=== PATIENT | male | born 1975 | race Caucasian/White ===

== ENCOUNTER 2025-08-23 10:18 | Inpatient (IN) | payer MEDICAID ==
[2025-08-23] VITALS (21 sets, daily range): BP systolic 98–127; BP diastolic 62–101; PULSE 66–110; RESP 13–24; TEMP 36.2–36.2512; O2SAT 98–100
[~2025-08-23] VITALS: Ht 152.4 cm; Wt 63.0 kg
[2025-08-23] MEDS: SODIUM CHLORIDE 0.9% (SEPSIS BOLUS) IV ONE (10:49)
[2025-08-23 11:03] LABS: BG BASE EXCESS -12.4 mmol/L (-2.0-3.0); BG CARBOXYHEMOGLOBIN 0.4 % (0.5-1.5); BG DEOXYHEMOGLOBIN 0.8 % (0.0-5.0); BG FLOW(L/min) 10.00 L/min; BG FRACTION INSPIRED OXYGEN 100; BG HCO3 ACT 13.7 mmol/L (21.0-28.0); BG METHEMOGLOBIN 0.1 % (0.5-1.5); BG OXYGEN SATURATION 99.2 % (94.0-98.0); BG OXYHEMOGLOBIN 98.7 % (94.0-98.0); BG PCO2 32.1 mmHg (35.0-48.0); BG PH 7.249 (7.350-7.450); BG PO2 190.2 mmHg (83.0-108.0); BG SAMPLE SITE RIGHT BRACHIAL; BG TOTAL HEMOGLOBIN 9.7 g/dL (13.5-17.5); BG VENT MODE MASK - NRB
[2025-08-23] MEDS: MORPHINE SULFATE 4 MG/ML INJ (FOR IV/IM USE) IV ONE (11:14)
[2025-08-23] MEDS: PIPERACILLIN/TAZO 3.375G/50ML 50 ML IV ONE (11:14)
[2025-08-23 11:19] LABS: HEMATOCRIT. 26.8 % (42.0-52.0); HEMOGLOBIN. 8.2 g/dL (14.0-18.0); MEAN PLATELET VOLUME 7.3 fl (7.4-10.4); RED BLOOD CELL COUNT 2.75 mill/uL (4.7-6.1); RED CELL DISTRIBUTION WIDTH 23.1 % (11.6-14.6)
[2025-08-23] MEDS ORDERED: NOREPINEPHRINE 8 MG in DEXT 5% WATER 242 ML IV PRN (11:30)
[2025-08-23 11:33] LABS: INR 1.0
[2025-08-23 11:52] LABS: TROPONIN I HIGH SENSITIVITY 96 ng/L (3.0-53)
[2025-08-23 11:58] LABS: CREATININE 2.9 mg/dL (0.6-1.3); UREA NITROGEN BLOOD 94 mg/dL (9-23)
[2025-08-23 12:00] LABS: ASPARTATE AMINOTRANSFERASE 18 IU/L (<34); BILIRUBIN DIRECT < 0.1 mg/dL (<=3.0)
[2025-08-23 12:01] LABS: BILIRUBIN TOTAL 0.3 mg/dL (0.1-1.0); PROTEIN TOTAL 6.8 g/dL (6.0-8.3)
[2025-08-23] MEDS: ONDANSETRON HCL 4MG/2ML INJ IV ONE (12:09)
[2025-08-23] MEDS: VANCOMYCIN 1G PREMIX 200 ML IV ONE (12:09)
[2025-08-23] MEDS: NOREPINEPHRINE 8MG/250ML PMX 250 ML IV PRN (12:10)
[2025-08-23 12:18] LABS: PLATELET 1090 x1000/uL (130-400)
[2025-08-23] MEDS: ALBUTEROL (0.083%) 2.5MG/3ML NEB HHN ONE (12:28)
[2025-08-23 12:33] LABS: CLARITY URINE CLOUDY (CLEAR); COLOR URINE DARK YELLOW (YELLOW); GLUCOSE URINE NEGATIVE (NEGATIVE); KETONES URINE NEGATIVE (NEGATIVE); LEUKOCYTE ESTERASE URINE 3+ (NEGATIVE); NITRITE URINE NEGATIVE (NEGATIVE); OCCULT BLOOD URINE 3+ (NEGATIVE); PH URINE 5.5 (4.5-8.0); PROTEIN URINE 1+ (NEGATIVE); SPECIFIC GRAVITY URINE 1.017 (1.005-1.030); UROBILINOGEN URINE 0.2 E.U./dL (0.2-1.0)
[2025-08-23] MEDS: CALCIUM CHLORIDE 1GM/10ML SYR IV ONE (12:38)
[2025-08-23] MEDS: DEXTROSE 50% WATER 50ML SYRINGE IV ONE (12:38)
[2025-08-23] MEDS: INSULIN REGULAR (HUMULIN R) 1000UNITS/10ML VIAL IV ONE (12:39)
[2025-08-23] MEDS ORDERED: ONDANSETRON HCL 4MG/2ML INJ IV PRN (12:45)
[2025-08-23] MEDS ORDERED: ACETAMINOPHEN 325MG TABLET PO PRN (12:45)
[2025-08-23] MEDS: LACTATED RINGERS 1,000 ML IV SCH (12:47)
[2025-08-23 12:51] LABS: SQUAMOUS EPITHELIAL CELL URINE NONE SEEN /lpf (RARE/1+)
[2025-08-23 12:52] LABS: BACTERIA URINE 4+; WBC URINE TNTC /hpf (0-2); YEAST URINE 2+
[2025-08-23] MEDS ORDERED: AZITHROMYCIN 500MG/250ML 250 ML IV SCH ×2 (13:00)
[2025-08-23] MEDS: SODIUM BICARBONATE 150 MEQ in DEXTROSE 5% WATER 850 ML IV SCH (13:16)
[2025-08-23 13:17] LABS: BAND% 4.0 % (1.0-6.0); LYMPHOCYTES % MANUAL 3.0 % (20.0-50.0); MONOCYTES % MANUAL 3.0 % (2.0-8.0); NEUTROPHILS % MANUAL 90.0 % (45.0-75.0); PLATELET ESTIMATE MARKEDLY INCREASED
[2025-08-23] MEDS: PANTOPRAZOLE SODIUM 40 MG/VIAL IV SCH (13:29)
[2025-08-23] MEDS: SODIUM CHLORIDE 0.9% 500 ML IV ONE (13:29)
[2025-08-23] MEDS ORDERED: DOXYCYCLINE 100MG/100ML 100 ML IV SCH (14:00)
[2025-08-23] MEDS ORDERED: NALOXONE HCL 0.4MG/ML VIAL IV PRN (14:00)
[2025-08-23 15:23] LABS: CREATININE 2.4 mg/dL (0.6-1.3); UREA NITROGEN BLOOD 59.0 mg/dL (9-23)
[2025-08-23] MEDS: ENOXAPARIN 30MG/0.3ML SYR SUBCUT SCH (15:49)
[2025-08-23] MEDS: PIPERACILLIN/TAZO 3.375G/50ML 50 ML IV SCH (15:49)
[2025-08-23 17:58] LABS: INFLUENZA TYPE A Presumptive Negative (Pres. Neg.); INFLUENZA TYPE B Presumptive Negative (Pres. Neg.)
[2025-08-23 17:59] LABS: RESPIRATORY SYNCYTIAL VIRUS Not Detected (Not Detectd)
[2025-08-23] MEDS: DOXYCYCLINE 100MG/100ML 100 ML IV SCH (20:27)
[2025-08-23] MEDS: NOREPINEPHRINE 8MG/250ML PMX 250ML IV PRN (21:13)
[2025-08-24] VITALS (90 sets, daily range): BP systolic 75–138; BP diastolic 36–112; PULSE 74–121; RESP 9–24; TEMP 36.3–36.9; O2SAT 99–100
[2025-08-24 06:01] LABS: HEMATOCRIT. 23.4 % (42.0-52.0); HEMOGLOBIN. 7.4 g/dL (14.0-18.0); MEAN PLATELET VOLUME 7.4 fl (7.4-10.4); PLATELET 674 x1000/uL (130-400); RED BLOOD CELL COUNT 2.41 mill/uL (4.7-6.1); RED CELL DISTRIBUTION WIDTH 22.9 % (11.6-14.6)
[2025-08-24 06:18] LABS: UREA NITROGEN BLOOD 43.0 mg/dL (9-23)
[2025-08-24 06:19] LABS: T4 FREE 1.07 ng/dL (0.89-1.76)
[2025-08-24 06:20] LABS: CREATININE 1.5 mg/dL (0.6-1.3)
[2025-08-24 09:43] LABS: ASPARTATE AMINOTRANSFERASE 21 IU/L (<34); BILIRUBIN DIRECT 0.1 mg/dL (<=3.0); BILIRUBIN TOTAL 0.3 mg/dL (0.1-1.0)
[2025-08-24 09:46] LABS: PROTEIN TOTAL 4.6 g/dL (6.0-8.3)
[2025-08-24] MEDS: SODIUM CHLORIDE 0.9% 1,000 ML IV ONE (10:11)
[2025-08-24] MEDS: MORPHINE SULFATE 2 MG/ML INJ (NOT FOR IM USE) IV PRN (11:31)
[2025-08-24] MEDS: VANCOMYCIN 750MG/150ML (BAXTER) IV SCH (12:08)
[2025-08-24] MEDS: SODIUM HYPOCHLORITE 0.125% 473ML SOLUTION TOP SCH (12:10)
[2025-08-24] MEDS ORDERED: FLUCONAZOLE 200 MG/100ML BAG 100 MG in CONTAINER,EMPTY 0 BAG IV SCH (14:45)
[2025-08-24] MEDS ORDERED: MIDODRINE HCL 5MG TABLET PO PRN (15:00)
[2025-08-24 17:13] LABS: LYMPHOCYTES % MANUAL 8.0 % (20.0-50.0); MONOCYTES % MANUAL 1.0 % (2.0-8.0); NEUTROPHILS % MANUAL 91.0 % (45.0-75.0); NUCLEATED RED BLOOD CELLS 1 /100 WBC; PLATELET ESTIMATE INCREASED
[2025-08-24] MEDS: FLUCONAZOLE 200 MG/100ML BAG 100 ML IV SCH (18:30)
[2025-08-24 23:00] LABS: TROPONIN I HIGH SENSITIVITY 5 ng/L (3.0-53)
[2025-08-25] VITALS (93 sets, daily range): BP systolic 71–118; BP diastolic 49–95; PULSE 73–111; RESP 9–27; TEMP 36.4–37; O2SAT 98–100
[2025-08-25 05:54] LABS: PLATELET 624 x1000/uL (130-400); RED BLOOD CELL COUNT 2.37 mill/uL (4.7-6.1); RED CELL DISTRIBUTION WIDTH 23.1 % (11.6-14.6)
[2025-08-25 05:59] LABS: CREATININE 1.3 mg/dL (0.6-1.3); UREA NITROGEN BLOOD 32 mg/dL (9-23)
[2025-08-25 06:13] LABS: FOLIC ACID (FOLATE) SERUM 11.47 ng/mL (>5.38); VITAMIN B12 SERUM 1187 pg/mL (211-911)
[2025-08-25 10:29] LABS: PLATELET 524 x1000/uL (130-400); RED BLOOD CELL COUNT 2.23 mill/uL (4.7-6.1); RED CELL DISTRIBUTION WIDTH 22.7 % (11.6-14.6)
[2025-08-25] MEDS ORDERED: NON FORMULARY MED XX SCH (11:00)
[2025-08-25] MEDS: IRON SUCROSE COMPLEX 100 MG/5 ML ML IV SCH (13:49)
[2025-08-25] MEDS ORDERED: CEFEPIME 1GM IN DEXT 5% 50ML IV SCH (14:30)
[2025-08-25] MEDS: MIDODRINE HCL 5MG TABLET PO SCH (15:18)
[2025-08-25] MEDS: CEFEPIME 2GM PREMIX 100ML IV SCH (16:42)
[2025-08-25 22:21] LABS: PLATELET 430 x1000/uL (130-400); RED BLOOD CELL COUNT 2.77 mill/uL (4.7-6.1); RED CELL DISTRIBUTION WIDTH 26.4 % (11.6-14.6)
[2025-08-25 22:34] LABS: CREATININE 1.0 mg/dL (0.6-1.3); UREA NITROGEN BLOOD 24 mg/dL (9-23)
[2025-08-26] VITALS (80 sets, daily range): BP systolic 69–126; BP diastolic 46–107; PULSE 60–118; RESP 11–28; TEMP 36.4–36.7; O2SAT 99–100
[2025-08-26 06:19] LABS: HEMATOCRIT. 31.1 % (42.0-52.0); HEMOGLOBIN. 9.9 g/dL (14.0-18.0); MEAN PLATELET VOLUME 7.2 fl (7.4-10.4); PLATELET 457 x1000/uL (130-400); RED BLOOD CELL COUNT 3.35 mill/uL (4.7-6.1); RED CELL DISTRIBUTION WIDTH 27.4 % (11.6-14.6)
[2025-08-26 06:51] LABS: ASPARTATE AMINOTRANSFERASE 17 IU/L (<34); CREATININE 1.0 mg/dL (0.6-1.3); UREA NITROGEN BLOOD 24 mg/dL (9-23)
[2025-08-26 06:53] LABS: BILIRUBIN DIRECT 0.2 mg/dL (<=3.0); BILIRUBIN TOTAL 0.6 mg/dL (0.1-1.0); PROTEIN TOTAL 5.2 g/dL (6.0-8.3)
[2025-08-26 07:27] LABS: HEPATITIS A AB IGM NEGATIVE (Negative)
[2025-08-26 07:28] LABS: HEPATITIS B CORE AB IGM NEGATIVE (Negative); HEPATITIS C AB NON REACTIVE (Neg) (Negative)
[2025-08-26] MEDS ORDERED: POTASSIUM CHLORIDE 20 MEQ in DEXT 5% WATER 90 ML IV ONE (08:00)
[2025-08-26] MEDS: KCL 20MEQ/100ML PREMIX 100 ML IV ONE (09:25)
[2025-08-26] MEDS: POTASSIUM CHLORIDE 20MEQ/PACKET PO NR (09:25)
[2025-08-26 10:39] LABS: BAND% 2.0 % (1.0-6.0); EOSINOPHILS % MANUAL 1.0 % (0.0-5.0); LYMPHOCYTES % MANUAL 4.0 % (20.0-50.0); MONOCYTES % MANUAL 3.0 % (2.0-8.0); NEUTROPHILS % MANUAL 90.0 % (45.0-75.0)
[2025-08-26 10:40] LABS: PLATELET ESTIMATE INCREASED
[2025-08-26] MEDS: MORPHINE SULFATE 2 MG/ML INJ (NOT FOR IM USE) IV PRN (10:53)
[2025-08-26 10:59] LABS: PHOSPHORUS 3.3 mg/dL (2.5-4.9)
[2025-08-26] MEDS ORDERED: DIATR MEGLU/DIATRIZOATE SOLN 30ML PO SCH (11:30)
[2025-08-26] MEDS: CEFEPIME 2GM PREMIX 100ML IV SCH (17:08)
[2025-08-27] VITALS (98 sets, daily range): BP systolic 76–122; BP diastolic 47–78; PULSE 59–100; RESP 9–26; TEMP 36.7–36.8; O2SAT 99–100
[2025-08-27 05:07] LABS: HEMATOCRIT. 29.7 % (42.0-52.0); HEMOGLOBIN. 9.1 g/dL (14.0-18.0); MEAN PLATELET VOLUME 7.2 fl (7.4-10.4); PLATELET 425 x1000/uL (130-400); RED BLOOD CELL COUNT 3.18 mill/uL (4.7-6.1); RED CELL DISTRIBUTION WIDTH 27.0 % (11.6-14.6)
[2025-08-27 05:32] LABS: CREATININE 1.0 mg/dL (0.6-1.3); UREA NITROGEN BLOOD 22 mg/dL (9-23)
[2025-08-27 05:35] LABS: PHOSPHORUS 2.5 mg/dL (2.5-4.9)
[2025-08-27] MEDS ORDERED: IOHEXOL-300 100 ML BOTTLE ONE (05:54)
[2025-08-27] MEDS: VANCOMYCIN 1GM PMX (XELLIA) 200 ML IV SCH (08:53)
[2025-08-27] MEDS: MAGNESIUM 2 G PREMIX 50 ML IV NR (08:53)
[2025-08-27] MEDS: HYDROCODONE/ACETAMINOPHEN 5/325MG TABLET PO PRN (12:01)
[2025-08-27 16:40] LABS: BAND% 5.0 % (1.0-6.0); LYMPHOCYTES % MANUAL 6.0 % (20.0-50.0); MONOCYTES % MANUAL 4.0 % (2.0-8.0); NEUTROPHILS % MANUAL 85.0 % (45.0-75.0); PLATELET ESTIMATE INCREASED
[2025-08-28] VITALS (88 sets, daily range): BP systolic 74–111; BP diastolic 45–82; PULSE 68–105; RESP 11–29; TEMP 36.1–36.9; O2SAT 92–100
[2025-08-28] MEDS ORDERED: MAGNESIUM 2 G PREMIX 50 ML IV NR (08:00)
[2025-08-28 10:43] LABS: HEMATOCRIT. 25.0 % (42.0-52.0); HEMOGLOBIN. 7.8 g/dL (14.0-18.0); MEAN PLATELET VOLUME 7.3 fl (7.4-10.4); PLATELET 319 x1000/uL (130-400); RED BLOOD CELL COUNT 2.67 mill/uL (4.7-6.1); RED CELL DISTRIBUTION WIDTH 26.2 % (11.6-14.6)
[2025-08-28 11:02] LABS: CREATININE 0.8 mg/dL (0.6-1.3); UREA NITROGEN BLOOD 20 mg/dL (9-23)
[2025-08-28 11:04] LABS: PHOSPHORUS 3.0 mg/dL (2.5-4.9)
[2025-08-28] MEDS: MAGNESIUM 2 G PREMIX 50 ML IV NR (16:05)
[2025-08-28] MEDS: SODIUM CHLORIDE 0.9% 500 ML IV ONE (16:05)
[2025-08-28] MEDS: POTASSIUM CHLORIDE 20MEQ TABLET SR PO NR (18:47)
[2025-08-28] MEDS: MIDODRINE HCL 5MG TABLET PO SCH (21:56)
[2025-08-29] VITALS (95 sets, daily range): BP systolic 61–127; BP diastolic 44–86; PULSE 54–120; RESP 7–25; TEMP 36.3–36.7; O2SAT 82–100
[2025-08-29] MEDS: MIDODRINE HCL 5MG TABLET PO SCH (05:27)
[2025-08-29 06:31] LABS: PLATELET 355 x1000/uL (130-400); RED BLOOD CELL COUNT 2.78 mill/uL (4.7-6.1); RED CELL DISTRIBUTION WIDTH 25.8 % (11.6-14.6)
[2025-08-29 06:47] LABS: CREATININE 0.9 mg/dL (0.6-1.3)
[2025-08-29 06:48] LABS: UREA NITROGEN BLOOD 18 mg/dL (9-23)
[2025-08-29 06:49] LABS: ASPARTATE AMINOTRANSFERASE 28 IU/L (<34)
[2025-08-29 06:50] LABS: BILIRUBIN DIRECT 0.3 mg/dL (<=3.0); BILIRUBIN TOTAL 0.6 mg/dL (0.1-1.0); PROTEIN TOTAL 4.2 g/dL (6.0-8.3)
[2025-08-29] MEDS: POTASSIUM CHLORIDE 20MEQ TABLET SR PO NR (08:27)
[2025-08-29] MEDS: SODIUM CHLORIDE 0.9% 500 ML IV ONE (11:43)
[2025-08-29 13:25] LABS: BAND% 5.0 % (1.0-6.0); LYMPHOCYTES % MANUAL 5.0 % (20.0-50.0); MONOCYTES % MANUAL 1.0 % (2.0-8.0); NEUTROPHILS % MANUAL 89.0 % (45.0-75.0); PLATELET ESTIMATE NORMAL
[2025-08-30] VITALS (72 sets, daily range): BP systolic 80–108; BP diastolic 52–79; PULSE 67–116; RESP 14–26; TEMP 36.7–36.8; O2SAT 92–100
[2025-08-30 05:00] LABS: BASOPHILS % 0.0 % (0.0-2.0); EOSINOPHILS % 0.4 % (0.0-5.0); HEMATOCRIT. 31.7 % (42.0-52.0); HEMOGLOBIN. 9.6 g/dL (14.0-18.0); LYMPHOCYTES % 7.3 % (20.0-50.0); MEAN PLATELET VOLUME 7.6 fl (7.4-10.4); MONOCYTES % 3.3 % (2.0-8.0); NEUTROPHILS % 89.0 % (40.0-76.0); PLATELET 368 x1000/uL (130-400); RED BLOOD CELL COUNT 3.34 mill/uL (4.7-6.1); RED CELL DISTRIBUTION WIDTH 26.0 % (11.6-14.6)
[2025-08-30 05:11] LABS: ADD RBC MORPHOLOGY YES
[2025-08-30 05:19] LABS: CREATININE 0.7 mg/dL (0.6-1.3); UREA NITROGEN BLOOD 15 mg/dL (9-23)
[2025-08-30 05:21] LABS: PHOSPHORUS 1.7 mg/dL (2.5-4.9)
[2025-08-30] MEDS: MAGNESIUM 2 G PREMIX 50 ML IV NR (08:13)
[2025-08-30] MEDS ORDERED: POTASSIUM PHOSPHATE 20 MMOL in DEXT 5% WATER 243.3333 ML IV NR (09:00)
[2025-08-30] MEDS ORDERED: MEGESTROL ACETATE 40MG TABLET PO SCH (09:00)
[2025-08-30] MEDS: SODIUM PHOSPHATE 30 MMOL in SODIUM CHLORIDE 0.9% 490 ML IV NR (10:15)
[2025-08-30] MEDS: MEGESTROL ACETATE 400 MG/10 ML UDC PO SCH (11:39)
[2025-08-30] MEDS: SODIUM BICARBONATE 8.4% 50MEQ/50ML SYR IV SCH (11:39)
[2025-08-30 11:45] LABS: PLATELET ESTIMATE NORMAL
[2025-08-30] MEDS: MEROPENEM 1G/100ML 100 ML IV SCH (13:20)
[2025-08-31] VITALS (83 sets, daily range): BP systolic 64–106; BP diastolic 37–76; PULSE 67–119; RESP 13–28; TEMP 36.7–36.9; O2SAT 80–100
[2025-08-31 05:37] LABS: CREATININE 0.5 mg/dL (0.6-1.3); UREA NITROGEN BLOOD 16 mg/dL (9-23)
[2025-08-31 05:39] LABS: PHOSPHORUS 2.4 mg/dL (2.5-4.9)
[2025-08-31 05:49] LABS: BASOPHILS % 0.1 % (0.0-2.0); EOSINOPHILS % 0.8 % (0.0-5.0); HEMATOCRIT. 29.7 % (42.0-52.0); HEMOGLOBIN. 8.9 g/dL (14.0-18.0); LYMPHOCYTES % 10.7 % (20.0-50.0); MEAN PLATELET VOLUME 8.4 fl (7.4-10.4); MONOCYTES % 4.2 % (2.0-8.0); NEUTROPHILS % 84.2 % (40.0-76.0); PLATELET 247 x1000/uL (130-400); RED BLOOD CELL COUNT 3.07 mill/uL (4.7-6.1); RED CELL DISTRIBUTION WIDTH 25.5 % (11.6-14.6)
[2025-08-31] MEDS: SODIUM CHLORIDE 0.9% 500 ML IV ONE (07:57)
[2025-08-31] MEDS: MAGNESIUM 2 G PREMIX 50 ML IV ONE ×2 (07:58→08:16)
[2025-08-31] MEDS: POTASSIUM PHOSPHATE 20 MMOL in DEXT 5% WATER 243.3333 ML IV ONE ×2 (08:15→12:10)
[2025-08-31] MEDS ORDERED: SODIUM CHLORIDE 0.9% 1,000 ML IV SCH (08:30)
[2025-08-31] MEDS: FERROUS SULFATE 325MG TABLET PO SCH (08:56)
[2025-08-31] MEDS: ASCORBIC ACID 250 MG TABLET PO SCH (08:56)
[2025-08-31] MEDS: SODIUM CHLORIDE 0.9% 1,000 ML IV SCH (08:56)
[2025-08-31] MEDS: NOREPINEPHRINE 8MG/250ML PMX 250 ML IV PRN (09:25)
[2025-08-31] MEDS ORDERED: LIDOCAINE HCL 1% 10 MG/ML 10ML VIAL ONE (10:50)
[2025-09-01] VITALS (97 sets, daily range): BP systolic 66–121; BP diastolic 46–95; PULSE 63–116; RESP 13–29; TEMP 36.6–37; O2SAT 96–100
[2025-09-01 11:40] LABS: CREATININE 0.4 mg/dL (0.6-1.3); UREA NITROGEN BLOOD 11 mg/dL (9-23)
[2025-09-01 11:42] LABS: PHOSPHORUS 2.0 mg/dL (2.5-4.9)
[2025-09-01 12:57] LABS: BASOPHILS % 0.2 % (0.0-2.0); EOSINOPHILS % 0.4 % (0.0-5.0); HEMATOCRIT. 27.1 % (42.0-52.0); HEMOGLOBIN. 8.3 g/dL (14.0-18.0); LYMPHOCYTES % 9.9 % (20.0-50.0); MEAN PLATELET VOLUME 8.8 fl (7.4-10.4); MONOCYTES % 3.2 % (2.0-8.0); NEUTROPHILS % 86.3 % (40.0-76.0); PLATELET 251 x1000/uL (130-400); RED BLOOD CELL COUNT 2.79 mill/uL (4.7-6.1); RED CELL DISTRIBUTION WIDTH 25.2 % (11.6-14.6)
[2025-09-01] MEDS: MAGNESIUM 2 G PREMIX 50 ML IV SCH (17:50)
[2025-09-01] MEDS: POTASSIUM PHOSPHATE 20 MMOL in DEXT 5% WATER 243.3333 ML IV SCH (20:54)
[2025-09-02] VITALS (99 sets, daily range): BP systolic 49–133; BP diastolic 32–97; PULSE 66–117; RESP 15–29; TEMP 36.4–36.8; O2SAT 97–100
[2025-09-02 06:20] LABS: BASOPHILS % 0.1 % (0.0-2.0); EOSINOPHILS % 0.6 % (0.0-5.0); HEMATOCRIT. 24.9 % (42.0-52.0); HEMOGLOBIN. 7.6 g/dL (14.0-18.0); LYMPHOCYTES % 11.3 % (20.0-50.0); MEAN PLATELET VOLUME 8.8 fl (7.4-10.4); MONOCYTES % 3.3 % (2.0-8.0); NEUTROPHILS % 84.7 % (40.0-76.0); PLATELET 236 x1000/uL (130-400); RED BLOOD CELL COUNT 2.59 mill/uL (4.7-6.1); RED CELL DISTRIBUTION WIDTH 25.2 % (11.6-14.6)
[2025-09-02 06:38] LABS: CREATININE 0.4 mg/dL (0.6-1.3); UREA NITROGEN BLOOD 11 mg/dL (9-23)
[2025-09-02 06:41] LABS: PHOSPHORUS 2.2 mg/dL (2.5-4.9)
[2025-09-02] MEDS ORDERED: LIDOCAINE HCL 1% 10 MG/ML 10ML VIAL ONE (08:22)
[2025-09-02] MEDS: SODIUM PHOSPHATE 20 MMOL in DEXT 5% WATER 243.3333 ML IV NR (10:43)
[2025-09-02] MEDS ORDERED: NALOXONE HCL 0.4MG/ML VIAL IV PRN (15:45)
[2025-09-02] MEDS: MORPHINE SULFATE 2 MG/ML INJ (NOT FOR IM USE) IV PRN (17:53)
[2025-09-03] VITALS (98 sets, daily range): BP systolic 75–122; BP diastolic 30–86; PULSE 72–124; RESP 5–26; TEMP 36.3918–36.9; O2SAT 98–100
[2025-09-03 05:29] LABS: BASOPHILS % 0.1 % (0.0-2.0); EOSINOPHILS % 0.2 % (0.0-5.0); HEMATOCRIT. 22.2 % (42.0-52.0); LYMPHOCYTES % 10.0 % (20.0-50.0); MEAN PLATELET VOLUME 8.2 fl (7.4-10.4); MONOCYTES % 3.3 % (2.0-8.0); NEUTROPHILS % 86.4 % (40.0-76.0); PLATELET 233 x1000/uL (130-400); RED BLOOD CELL COUNT 2.33 mill/uL (4.7-6.1); RED CELL DISTRIBUTION WIDTH 25.3 % (11.6-14.6)
[2025-09-03 05:39] LABS: HEMOGLOBIN. 6.8 g/dL (14.0-18.0)
[2025-09-03 05:47] LABS: CREATININE 0.4 mg/dL (0.6-1.3); UREA NITROGEN BLOOD 12 mg/dL (9-23)
[2025-09-03 05:50] LABS: PHOSPHORUS 2.2 mg/dL (2.5-4.9)
[2025-09-03] MEDS: MAGNESIUM 4 G PREMIX 100 ML IV NR (08:35)
[2025-09-03] MEDS: SODIUM BICARBONATE 650MG TABLET PO SCH (08:35)
[2025-09-03] MEDS: POTASSIUM PHOSPHATE 30 MMOL in SODIUM CHLORIDE 0.9% 490 ML IV NR (08:40)
[2025-09-03 10:11] LABS: T4 FREE 0.74 ng/dL (0.89-1.76)
[2025-09-03] MEDS: CALCIUM GLUCONATE 1GM PREMIX 50 ML IV SCH (10:38)
[2025-09-03] MEDS: KETOROLAC 30MG/ML VIAL IV NR (23:26)
[2025-09-04] VITALS (78 sets, daily range): BP systolic 83–123; BP diastolic 54–83; PULSE 70–114; RESP 13–29; TEMP 36.4–37; O2SAT 98–100
[2025-09-04] MEDS ORDERED: LEVOTHYROXINE SODIUM 50MCG TABLET PO SCH (06:30)
[2025-09-04] MEDS: LEVOTHYROXINE SODIUM 25MCG TABLET PO SCH (06:31)
[2025-09-04 06:35] LABS: CREATININE 0.5 mg/dL (0.6-1.3); UREA NITROGEN BLOOD 14 mg/dL (9-23)
[2025-09-04 06:37] LABS: PHOSPHORUS 2.7 mg/dL (2.5-4.9)
[2025-09-04] MEDS ORDERED: HEPARIN 100 UNITS/1 ML VIAL IVF PRN (08:00)
[2025-09-04 12:31] LABS: BASOPHILS % 0.1 % (0.0-2.0); EOSINOPHILS % 0.8 % (0.0-5.0); HEMATOCRIT. 31.8 % (42.0-52.0); HEMOGLOBIN. 9.8 g/dL (14.0-18.0); LYMPHOCYTES % 8.6 % (20.0-50.0); MEAN PLATELET VOLUME 8.9 fl (7.4-10.4); MONOCYTES % 3.6 % (2.0-8.0); NEUTROPHILS % 86.9 % (40.0-76.0); PLATELET 179 x1000/uL (130-400); RED BLOOD CELL COUNT 3.33 mill/uL (4.7-6.1); RED CELL DISTRIBUTION WIDTH 22.8 % (11.6-14.6)
[2025-09-04 12:41] LABS: ADD RBC MORPHOLOGY NO
[2025-09-04] MEDS ORDERED: SODIUM BICARBONATE 8.4% 50MEQ/50ML VIAL IV ONE (20:15)
[2025-09-04] MEDS: CALCIUM CHLORIDE 1GM/10ML SYR IV SCH (21:19)
[2025-09-05] VITALS (12 sets, daily range): BP systolic 79–106; BP diastolic 63–76; PULSE 87–116; RESP 13–22; TEMP 36.6–37.7; O2SAT 98–100
[2025-09-05 05:52] LABS: BASOPHILS % 0.1 % (0.0-2.0); EOSINOPHILS % 0.6 % (0.0-5.0); HEMATOCRIT. 30.2 % (42.0-52.0); HEMOGLOBIN. 9.1 g/dL (14.0-18.0); LYMPHOCYTES % 11.4 % (20.0-50.0); MEAN PLATELET VOLUME 9.1 fl (7.4-10.4); MONOCYTES % 4.2 % (2.0-8.0); NEUTROPHILS % 83.7 % (40.0-76.0); PLATELET 187 x1000/uL (130-400); RED BLOOD CELL COUNT 3.08 mill/uL (4.7-6.1); RED CELL DISTRIBUTION WIDTH 23.1 % (11.6-14.6)
[2025-09-05 06:14] LABS: CREATININE 0.4 mg/dL (0.6-1.3); UREA NITROGEN BLOOD 10 mg/dL (9-23)
[2025-09-05] MEDS: ACETAMINOPHEN 325MG TABLET PO PRN (06:44)
[2025-09-05] MEDS ORDERED: NALOXONE HCL 0.4MG/ML VIAL IV PRN (11:30)
[2025-09-05] MEDS: BLOOD SUGAR DIAGNOSTIC STRIP TEST SCH (12:19)
[2025-09-05] MEDS: MORPHINE SULFATE 2 MG/ML INJ (NOT FOR IM USE) IV PRN (12:34)
[2025-09-06] VITALS (12 sets, daily range): BP systolic 69–107; BP diastolic 49–80; PULSE 79–122; RESP 11–18; TEMP 36.4–36.6; O2SAT 98–100
[2025-09-06 05:48] LABS: CREATININE 0.4 mg/dL (0.6-1.3); UREA NITROGEN BLOOD 12 mg/dL (9-23)
[2025-09-06] MEDS: HYDROCODONE/ACETAMINOPHEN 10/325MG TABLET PO PRN (06:06)
[2025-09-06 06:29] LABS: BASOPHILS % 0.2 % (0.0-2.0); EOSINOPHILS % 0.5 % (0.0-5.0); HEMATOCRIT. 31.8 % (42.0-52.0); HEMOGLOBIN. 10.0 g/dL (14.0-18.0); LYMPHOCYTES % 8.5 % (20.0-50.0); MEAN PLATELET VOLUME 9.2 fl (7.4-10.4); MONOCYTES % 4.0 % (2.0-8.0); NEUTROPHILS % 86.8 % (40.0-76.0); PLATELET 232 x1000/uL (130-400); RED BLOOD CELL COUNT 3.30 mill/uL (4.7-6.1); RED CELL DISTRIBUTION WIDTH 23.2 % (11.6-14.6)
[2025-09-06] MEDS: AZITHROMYCIN 500 MG TABLET PO SCH (21:35)
[2025-09-07] VITALS (12 sets, daily range): BP systolic 79–108; BP diastolic 49–87; PULSE 85–118; RESP 8–19; TEMP 36.3–36.9; O2SAT 96–100
[2025-09-07] MEDS: SODIUM CHLORIDE 0.9% 500 ML IV ONE (08:46)
[2025-09-07] MEDS: DEXT 5%/0.45% NACL 1000ML 1,000 ML IV SCH (12:26)
[2025-09-07 12:42] LABS: PLATELET 182 x1000/uL (130-400); RED BLOOD CELL COUNT 3.08 mill/uL (4.7-6.1); RED CELL DISTRIBUTION WIDTH 23.4 % (11.6-14.6)
[2025-09-07 12:55] LABS: CREATININE 0.4 mg/dL (0.6-1.3)
[2025-09-07 12:56] LABS: UREA NITROGEN BLOOD 10 mg/dL (9-23)
[2025-09-07] MEDS: MORPHINE SULFATE 2 MG/ML INJ (NOT FOR IM USE) IV SCH (20:48)
[2025-09-08] VITALS (10 sets, daily range): BP systolic 85–106; BP diastolic 45–63; PULSE 64–116; RESP 12–18; TEMP 36.1–37; O2SAT 74–100
[2025-09-08] MEDS: KETOROLAC 30MG/ML VIAL IV NR (01:39)
[2025-09-08] MEDS: SODIUM CHLORIDE 0.9% 250 ML IV ONE (04:30)
[2025-09-08] MEDS: LEVOTHYROXINE SODIUM 50MCG TABLET PO SCH (08:55)
[2025-09-08] MEDS: MORPHINE SULFATE 2 MG/ML INJ (NOT FOR IM USE) IV PRN (09:11)
[2025-09-09] VITALS: BP 109/66; PULSE 76; RESP 16; TEMP 36.9; O2SAT 97
[2025-09-09 02:00] VITALS: BP 108/59; PULSE 82; RESP 16; O2SAT 98
[2025-09-09 03:50] LABS: CLARITY URINE CLOUDY (CLEAR); COLOR URINE DARK YELLOW (YELLOW); GLUCOSE URINE NEGATIVE (NEGATIVE); KETONES URINE NEGATIVE (NEGATIVE); LEUKOCYTE ESTERASE URINE TRACE (NEGATIVE); NITRITE URINE NEGATIVE (NEGATIVE); OCCULT BLOOD URINE TRACE (NEGATIVE); PH URINE 5.0 (4.5-8.0); PROTEIN URINE 1+ (NEGATIVE); SPECIFIC GRAVITY URINE 1.022 (1.005-1.030); UROBILINOGEN URINE 0.2 E.U./dL (0.2-1.0)
[2025-09-09 04:00] VITALS: BP 93/61; PULSE 100; RESP 16; TEMP 36.9; O2SAT 100
[2025-09-09 04:46] LABS: BACTERIA URINE TRACE; RBC URINE 0-2 /hpf (0-2); SQUAMOUS EPITHELIAL CELL URINE FEW /lpf (RARE/1+); WBC URINE 0-2 /hpf (0-2)
[2025-09-09 04:47] LABS: COARSE GRANULAR CASTS URINE 0-5 /lpf; URIC ACID CRYSTALS URINE 1+ /lpf; YEAST URINE 2+
[2025-09-09 08:00] VITALS: BP 102/60; PULSE 89; RESP 15; O2SAT 100
[2025-09-09 12:00] VITALS: BP 100/62; PULSE 107; RESP 18; TEMP 36.7; O2SAT 100
[2025-09-09 16:00] VITALS: BP 83/55; PULSE 102; RESP 18; O2SAT 100
[2025-09-09] MEDS: MICAFUNGIN 100 MG in SODIUM CHLORIDE 0.9% 100 ML IV SCH (18:13)
[2025-09-09 18:15] LABS: BASOPHILS % 0.4 % (0.0-2.0); EOSINOPHILS % 0.7 % (0.0-5.0); HEMATOCRIT. 31.3 % (42.0-52.0); HEMOGLOBIN. 9.3 g/dL (14.0-18.0); LYMPHOCYTES % 11.9 % (20.0-50.0); MEAN PLATELET VOLUME 9.2 fl (7.4-10.4); MONOCYTES % 4.2 % (2.0-8.0); NEUTROPHILS % 82.8 % (40.0-76.0); PLATELET 278 x1000/uL (130-400); RED BLOOD CELL COUNT 3.10 mill/uL (4.7-6.1); RED CELL DISTRIBUTION WIDTH 23.0 % (11.6-14.6)
[2025-09-09 18:34] LABS: CREATININE 0.6 mg/dL (0.6-1.3); UREA NITROGEN BLOOD 13 mg/dL (9-23)
[2025-09-09 18:36] LABS: ASPARTATE AMINOTRANSFERASE 16 IU/L (<34); BILIRUBIN TOTAL 0.2 mg/dL (0.1-1.0); PROTEIN TOTAL 4.2 g/dL (6.0-8.3)
[2025-09-10] VITALS: BP 104/69; PULSE 103; RESP 18; TEMP 36.9; O2SAT 100
[2025-09-10] MEDS ORDERED: LOPERAMIDE 2MG/15ML UDC PO PRN (02:45)
[2025-09-10 04:00] VITALS: BP 93/57; PULSE 89; RESP 18; TEMP 36.8; O2SAT 100
[2025-09-10 07:46] LABS: BASOPHILS % 0.5 % (0.0-2.0); EOSINOPHILS % 0.5 % (0.0-5.0); HEMATOCRIT. 31.6 % (42.0-52.0); HEMOGLOBIN. 9.8 g/dL (14.0-18.0); LYMPHOCYTES % 10.7 % (20.0-50.0); MEAN PLATELET VOLUME 8.6 fl (7.4-10.4); MONOCYTES % 6.0 % (2.0-8.0); NEUTROPHILS % 82.3 % (40.0-76.0); PLATELET 341 x1000/uL (130-400); RED BLOOD CELL COUNT 3.26 mill/uL (4.7-6.1); RED CELL DISTRIBUTION WIDTH 22.9 % (11.6-14.6)
[2025-09-10 07:58] LABS: UREA NITROGEN BLOOD 14 mg/dL (9-23)
[2025-09-10 08:00] VITALS: BP 102/66; PULSE 104; RESP 18; TEMP 36.1; TEMP 38.9; O2SAT 100
[2025-09-10 08:03] LABS: ADD RBC MORPHOLOGY YES
[2025-09-10 08:54] LABS: CREATININE 0.4 mg/dL (0.6-1.3)
[2025-09-10 12:00] VITALS: BP 98/69; PULSE 106; RESP 18; TEMP 36.3; O2SAT 100
[2025-09-10] MEDS ORDERED: LOPERAMIDE HCL 2MG CAPSULE PO PRN (12:45)
[2025-09-10 16:00] VITALS: BP 103/71; PULSE 95; RESP 18; TEMP 36.4; O2SAT 99
[2025-09-10 20:00] VITALS: BP 98/86; PULSE 96; RESP 18; TEMP 36.1; O2SAT 99
[2025-09-10 22:31] LABS: INR 1.1
[2025-09-11] VITALS (7 sets, daily range): BP systolic 94–100; BP diastolic 50–58; PULSE 76–97; RESP 16–22; TEMP 36.2–36.4; O2SAT 96–100
[2025-09-11] MEDS: VANCOMYCIN 750MG PREMIX 150 ML IV SCH (08:48)
[2025-09-11 11:23] LABS: PLATELET ESTIMATE NORMAL
== END 2025-09-11 18:10 | disposition hospice, home (50) | DRG 720 ==
LOC: ER 10:32 → MICUNO 12:40 → ENRESERV 13:20 → CANRESERV 13:20 → ENRESERV 17:56 → MICUSO 08-29 21:38 → 5EST 09-04 15:30 → 7EST 09-09 20:29
PROVIDERS: ADMIT Internal Medicine; ATTEND Internal Medicine
PROC: 30233N1 Transfusion of Nonautologous Red Blood Cells into Peripheral Vein, Percutaneous Approach (ICD-10-PCS; 2025-08-25)
PROC: 02HV33Z Insertion of Infusion Device into Superior Vena Cava, Percutaneous Approach (ICD-10-PCS; principal; 2025-08-31)
PROC: B548ZZA Ultrasonography of Superior Vena Cava, Guidance (ICD-10-PCS; 2025-08-31)
PROC: 02HV33Z Insertion of Infusion Device into Superior Vena Cava, Percutaneous Approach (ICD-10-PCS; 2025-09-02)
PROC: B548ZZA Ultrasonography of Superior Vena Cava, Guidance (ICD-10-PCS; 2025-09-02)
DX: A41.89 Other specified sepsis (principal); R65.21 Severe sepsis with septic shock; N17.0 Acute kidney failure with tubular necrosis; J96.01 Acute respiratory failure with hypoxia; E83.41 Hypermagnesemia; E87.20 Acidosis, unspecified; C76.3 Malignant neoplasm of pelvis; D53.9 Nutritional anemia, unspecified; J18.9 Pneumonia, unspecified organism; B96.89 Other specified bacterial agents as the cause of diseases classified elsewhere; B96.5 Pseudomonas (aeruginosa) (mallei) (pseudomallei) as the cause of diseases classified elsewhere; N39.0 Urinary tract infection, site not specified; K76.9 Liver disease, unspecified; N18.9 Chronic kidney disease, unspecified; E87.1 Hypo-osmolality and hyponatremia; I21.A1 Myocardial infarction type 2; L98.429 Non-pressure chronic ulcer of back with unspecified severity; E87.5 Hyperkalemia; D75.839 Thrombocytosis, unspecified; G89.3 Neoplasm related pain (acute) (chronic); Z85.47 Personal history of malignant neoplasm of testis; K29.70 Gastritis, unspecified, without bleeding; R19.7 Diarrhea, unspecified; E83.42 Hypomagnesemia; Z51.5 Encounter for palliative care; Z66 Do not resuscitate; Z74.01 Bed confinement status; Z86.73 Personal history of transient ischemic attack (TIA), and cerebral infarction without residual deficits; Z92.21 Personal history of antineoplastic chemotherapy
CPT/HCPCS: 36415; 36573; 36600; 71045; 74177; 76700; 76770; 80048; 80053; 80076; 80202; 81003; 82270; 82375; 82378; 82533; 82550; 82607; 82728; 82746; 82805; 82962; 83036; 83540; 83550; 83605; 83735; 83880; 84100; 84132; 84145; 84439; 84443; 84481; 84484; 85014; 85018; 85025; 85027; 85044; 85379; 86705; 86709; 86850; 86900; 86920; 87015; 87045; 87077; 87186; 87340; 87420; 87427; 87449; 87804; 89055; 93005; 94070; 94640; 94664; 96365; 96375; 97161; 97165; 98960; 99291; 99292; A4606; C1725; C1769; J0612; J0692; J1450; J1642; J1650; J1815; J1885; J2003; J2185; J2248; J2270; J2405; J2470; J2543; J3373; J3475; J3480; J3490; J7030; J7040; J7050; J7060; J7070; P9016; Q9963; Q9967